=== PATIENT | female | born 1975 | race Caucasian/White ===

== ENCOUNTER 2022-08-11 08:04 | Emergency (ER) | payer OTHER, SELFPAY ==
[2022-08-11] VITALS (11 sets, daily range): BP systolic 117–143; BP diastolic 69–103; PULSE 67–91; RESP 16; TEMP 36.6; O2SAT 97–100; BMI 22.9
--- NOTE | 2022-08-11 08:15 | ED.ABDPAIN ---
HPI - Abdominal Pain General Time Seen by Provider: 08:15 Date Seen: 08/11/22 Chief Complaint: Abdominal Pain Stated Complaint: RT side back and abdominal pain Time Seen by Provider: 08/11/22 08:15 Source: patient and RN notes reviewed Mode of arrival: ambulatory Limitations: no limitations History of Present Illness HPI narrative: Haley is a very pleasant 47-year-old female previously healthy who comes to the emergency room with complaints of abdominal pain and diarrhea. Patient notes the sudden onset of pain located in the right side of her abdomen with radiation into her back right flank on FridayAugust 07. She thought that this was perhaps a urinary tract infection but went to urgent care and the urinalysis was negative. She notes that the pain then migrated to her right lower quadrant but remained in her back over the next 48 hours. She notes that on Friday and going into yesterAugust 09 she had the development of a rash on that side. The rash in comes from her back wraps around her side and into her groin. She has not had shingles in the past. Patient states that right now in the ER she feels as good as she has felt since Friday. She has had some loose stools with this and describes 1 dark stool but describes no gross blood. She notes that she sometimes has improvement of the pain with urination but has not noticed any blood in her urine. She denies any possibility of . She thinks that she has had low-grade temps in the mornings. She denies nausea or vomiting. She has not had cough cold or congestion. Related Data Previous Rx's Medication Instructions Recorded hydrocodone 5 mg-acetaminophen 325 See Rx Instructions .Route 08/11/22 mg tablet .COMPLEX PRN pain #10 tabs valacyclovir 1 gram tablet 1,000 mg PO TID 7 days #21 tabs 08/11/22 Allergies Allergy/AdvReac Type Severity Reaction Status Date / Time No Known Drug Allergies Allergy Verified 08/11/22 08:13 Review of Systems Status of ROS Reports: 10 or more systems reviewed and unremarkable except as noted in History and below Const Reports: fever (Low-grade in the morning) and fatigue; Denies: chills or night sweats Eyes Denies: change in vision ENMT Denies: throat pain, neck pain, throat swelling or difficulty swallowing Cardio Denies: chest pain, palpitations, swelling of feet/ankles or shortness of breath with exertion Resp Denies: shortness of breath, cough or wheezing GI Reports: abdominal pain and diarrhea; Denies: nausea, vomiting, difficulty swallowing or blood in stool Denies: painful urination, urinary frequency, urinary urgency or blood in urine Musculo Reports: back pain; Denies: neck pain, extremity pain, extremity swelling or joint pain Integ/Breast Reports: rash, redness and skin tenderness; Denies: itching Neuro Denies: headache, numbness in extremities or weakness in extremities Psych Reports: anxiety (Is nervous about being in the emergency room) Endo Reports: fatigue Allergy/Immuno Denies: throat swelling or wheezing [facility] Social History Smoking Status: Never smoker Do you use any of these nicotine containing products: None Second hand tobacco smoke exposure: No How often do you have a drink containing alcohol: never How often do you have six or more drinks on one occasion: Never AUDIT-C Alcohol total score: 0 Non-prescribed substance use: denies use Exam Narrative: Exam Narrative: Patient is alert and oriented. Very pleasant well-spoken woman. Somewhat anxious. Eyes are clear. Face symmetrical. Heart with regular rate and rhythm. Lungs are clear in all lung cantu. Abdomen shows normal bowel sounds. No significant tenderness on exam. Lower extremities are moving without difficulty. Examination of patient's back shows a large area of erythema with the onset of some blistering in the T12/L1 dermatome. There are blisters on erythema extending on to the upper aspect of the buttock around the hip and on the mons pubis and right groin. I do not see any weeping at this time. Straight leg raise internal external rotation of the right hip does not increase pain in the abdomen. Const: Vital Signs, click to edit/add: Vital Signs - 24 hr 08/11/22 08:09 08/11/22 08:49 08/11/22 08:50 Temperature 97.8 F Pulse Rate 81 88 Pulse Rate [Left P ulse Oximeter] 91 Respiratory Rate 16 Blood Pressure 139/69 Blood Pressure [Ri ght Upper Arm] 143/76 H Pulse Oximetry 99 100 99 Oxygen Delivery Me thod Room Air 08/11/22 09:00 08/11/22 09:01 08/11/22 09:15 Temperature Pulse Rate 82 77 78 Pulse Rate [Left P ulse Oximeter] Respiratory Rate Blood Pressure 133/79 Blood Pressure [Ri ght Upper Arm] Pulse Oximetry 97 98 99 Oxygen Delivery Me thod 08/11/22 09:30 08/11/22 09:31 08/11/22 09:45 Temperature Pulse Rate 75 72 70 Pulse Rate [Left P ulse Oximeter] Respiratory Rate Blood Pressure 117/69 Blood Pressure [Ri ght Upper Arm] Pulse Oximetry 100 100 99 Oxygen Delivery Me thod Documenting provider has reviewed patient's vital signs: yes Course Course Hospital Course: Patient is presenting with rash consistent with shingles. However, she also has underlying diarrhea as well as discomfort in the right side of her abdomen relieved by urination. Patient is in agreement to make sure there is not coexisting colitis, kidney stone, UTI. We will place an IV use Toradol 15 mg IV and normal saline initially. Blood draw will be for CBC, comprehensive panel, and urinalysis. Reevaluation(s) Reevaluation #1: Patient notes feeling improved after fluids and Toradol. Vital Signs Vital signs: Initial Vital Signs Temperature 97.8 F 08/11/22 08:09 Temperature Source Temporal Artery Scan 08/11/22 08:09 Pulse Rate 91 08/11/22 08:09 Pulse Rhythm 08/11/22 08:09 Pulse Strength 3+ Normal 08/11/22 08:09 Respiratory Rate 16 08/11/22 08:09 Blood Pressure 143/76 H 08/11/22 08:09 Blood Pressure Mean 98 08/11/22 08:09 Blood Pressure Position Sitting 08/11/22 08:09 Pulse Oximetry 99 08/11/22 08:09 Oxygen Delivery Method 08/11/22 08:09 Vital Signs Temperature 97.8 F 08/11/22 08:09 Pulse Rate 91 08/11/22 08:09 Respiratory Rate 16 08/11/22 08:09 Blood Pressure 143/76 H 08/11/22 08:09 Pulse Oximetry 99 08/11/22 08:09 Oxygen Delivery Method 08/11/22 08:09 Temperature 97.8 F 08/11/22 08:09 Pulse Rate 70 08/11/22 09:45 Respiratory Rate 16 08/11/22 08:09 Blood Pressure 117/69 08/11/22 09:31 Pulse Oximetry 99 02/05/23 09:45 Oxygen Delivery Method 08/11/22 08:09 MDM - Abdominal Pain MDM Narrative Medical decision making narrative: 1. Shingles-valacyclovir 1 g p.o. t.i.d. x7 days. For discomfort recommend ibuprofen 600 mg every 8 hours as needed for pain. Will also supply small amount of Shade 5/325 1-2 tabs p.o. Q 4-6 hours p.r.n. 10. With no refills. Recommend avoiding individuals, young children especially babies with no history of chickenpox or vaccination as well as the elderly. Patient is instructed on keeping this area covered. Will monitor for signs of secondary infection and seek medical attention as needed. Recommend follow-up and establishment of care with primary care. 2. Diarrhea-at this time white count is normal and abdomen is benign. No further imaging at this time unless patient has onset of fever and worsening symptoms. 3. Hematuria-patient really does not have any symptoms of [place] IA and yet has 10-20 wbc's and rbc's. However for further evaluation shows that this is a contaminated specimen. Patient also notes that she thinks she has started spotting for her. . At this time no further imaging but recommend follow-up and recheck of urinalysis or possibility of imaging if patient has worsening symptoms. Patient has no prior history of kidney stones or colitis. Vital signs reassuring today but I did talk about some of her symptoms not being entirely consistent with only shingles. If she has worsening symptoms I would like her re-evaluated and would start with a CT of the abdomen and pelvis if warranted. I did discuss additional diagnoses outside of shingles with this patient. She does agree that she feels comfortable going home at this time. 3. Disposition-home with . [facility] Return as needed. Lab Data Attestation: I reviewed the patient's lab results. Labs: Lab Results 08/11/22 08/11/22 08/11/22 Range/Units 08:50 08:50 08:50 WBC 4.22 L (4.50-11.00) K/uL RBC 4.84 (4.00-5.20) m/uL Hgb 13.1 (12.0-16.0) gm/dL Hct 39.7 (33.0-51.0) % MCV 82 (80-100) fL MCH 27 (26-34) pg MCHC 33 (32-36) gm/dL RDW Coeff of [place] 14.3 (11.5-15.5) % Plt Count 152 (140-440) K/uL Neut % (Auto) 69.3 (42.0-72.0) % Lymph % (Auto) 20.6 (20-44) % [place] % (Auto) 8.8 (0.0-11.0) % Eos % (Auto) 0.2 (0.0-7.0) % Baso % (Auto) 0.9 (0.0-3.0) % Neut # (Auto) 2.90 (1.7-7.0) K/uL Lymph # (Auto) 0.90 (0.90-2.90) K/uL [place] # (Auto) 0.40 (0.00-0.90) K/UL Eos # (Auto) 0.00 (0.00-0.50) K/uL Baso # (Auto) 0.00 (0.00-0.30) K/uL Sodium 136 (135-149) mmol/L Potassium 3.5 L (3.6-5.1) mmol/L Chloride 102 (96-114) mmol/L Carbon Dioxide 27 (20-32) mmol/L BUN 10 (5-24) mg/dL Creatinine 0.8 (0.5-1.5) mg/dL Estimated Creat Clear 68.76 Estimated GFR 91 ml/min Glucose 103 (60-115) mg/dL Calcium 8.9 (8.4-10.6) mg/dL Total Bilirubin 0.8 (0.1-1.5) mg/dL Direct Bilirubin 0.1 (0.0-0.5) mg/dL AST 25 (12-35) U/L ALT 23 (4-35) U/L Alkaline Phosphatase 66 (40-150) U/L C-Reactive Protein 0.5 (0.5-1.0) mg/dL Total Protein 7.8 (6.0-8.3) g/dL Albumin 4.6 (3.3-5.0) g/dL Urine Color Yellow (Yellow) Urine Appearance Clear (Clear) Urine pH 6.0 (5.0-8.5) Ur Specific [place] 1.015 (1.000-1.030) Urine Protein Negative (Negative) Urine Glucose (UA) Negative (Negative) Urine Ketones 1+ A (Negative) Urine Blood 3+ A (Negative) Urine Nitrite Negative (Negative) Urine Bilirubin Negative (Negative) Urine Urobilinogen 0.2 (0.2-1.0) Ur Leukocyte Esterase Negative (Negative) Urine RBC 10-25 A (0-2) Urine WBC 10-25 A (0-5) Ur Squamous Epith Cells Moderate A (None-Few) Urine Bacteria Moderate A (None) Discharge Plan Discharge Clinical Impression: Shingles Patient Disposition: Home, Self-Care Condition: Improved Additional Instructions: Start your antiviral medicine called valacyclovir today. You will take this medication 3 times a day for 7 days. For pain: Ibuprofen 600 mg every 8 hours as needed for discomfort. Shade also known as hydrocodone or Vicodin may be used for pain not relieved by ibuprofen. Sometimes is best to leave this for nighttime sleeping. Side effects of hydrocodone which is a narcotic do include constipation, nausea and sometimes lightheadedness. Please do not use alcohol or operate a vehicle if you are on a narcotic. You may want to take a stool softener. You are contagious to anybody who is not immune to chickenpox. Please isolate from the elderly population as well as anybody who may be or on chemotherapy. Follow-up with a new provider. [facility] can be reached at [phone]. Dr. Calvert and Dr. Simon are taking patients I believe. The [facility] can be reached at [phone]. Suggest follow-up sometime over the next week. Prescriptions: New valacyclovir 1 gram tablet 1,000 mg PO TID 7 Days Qty: 21 0RF hydrocodone-acetaminophen 5-325 mg tablet See Rx Instructions .ROUTE .COMPLEX PRN (Reason: pain) Qty: 10 0RF Rx Instructions: 1-2 tabs p.o. q.4-6 hours p.r.n. discomfort. Stand Alone Forms: [facility]ician [facility] [employer] Info Instructions
[2022-08-11] MEDS: 0.9 % SODIUM CHLORIDE 1000 ml 1,000 ML IV (08:48)
[2022-08-11] MEDS: KETOROLAC 15 MG/ML inj IVP (08:48)
[2022-08-11 08:58] LABS: Appearance Urine Clear (Clear); Bilirubin Urine Negative (Negative); Blood Urine 3+ (Negative); Color Urine Yellow (Yellow); Glucose Urine Negative (Negative); Ketones Urine 1+ (Negative); Leukocyte Esterase Urine Negative (Negative); Nitrite Urine Negative (Negative); Protein Urine Negative (Negative); Specific Gravity Urine 1.015 (1.000-1.030); Urobilinogen Urine 0.2 (0.2-1.0)
[2022-08-11 08:59] LABS: Basophils Percent Auto 0.9 % (0.0-3.0); Eosinophils Percent Auto 0.2 % (0.0-7.0); Hematocrit 39.7 % (33.0-51.0); Hemoglobin* 13.1 gm/dL (12.0-16.0); Immature Granulocytes Pct Auto 0.2 %; Lymphocytes Percent Auto 20.6 % (20-44); Mean Corpuscular HGB Conc 33 gm/dL (32-36); Mean Corpuscular Hemoglobin 27 pg (26-34); Mean Corpuscular Volume 82 fL (80-100); Monocytes Percent Auto 8.8 % (0.0-11.0); Neutrophils Percent Auto 69.3 % (42.0-72.0); Platelet Count* 152 K/uL (140-440); RDW Coefficient of Variation % 14.3 % (11.5-15.5); Red Blood Count 4.84 m/uL (4.00-5.20); White Blood Count* 4.22 K/uL (4.50-11.00)
[2022-08-11 09:05] LABS: Slide Review Reflex No
[2022-08-11 09:16] LABS: Squamous Epithelial Cell Urine Moderate (None-Few)
[2022-08-11 09:17] LABS: Bacteria Urine Moderate
[2022-08-11 09:33] LABS: Albumin* 4.6 g/dL (3.3-5.0); Chloride* 102 mmol/L (96-114)
[2022-08-11 09:34] LABS: Potassium* 3.5 mmol/L (3.6-5.1); Sodium* 136 mmol/L (135-149)
[2022-08-11 09:36] LABS: Alkaline Phosphatase* 66 U/L (40-150); Aspartate Amino Transferase* 25 U/L (12-35); Bilirubin Direct* 0.1 mg/dL (0.0-0.5); Bilirubin Total* 0.8 mg/dL (0.1-1.5); Blood Urea Nitrogen* 10 mg/dL (5-24); Carbon Dioxide* 27 mmol/L (20-32); Creatinine* 0.8 mg/dL (0.5-1.5); Est. Creatinine Clearance* 68.76; Estimated Glomerular Filt Rate 91 ml/min; Total Protein* 7.8 g/dL (6.0-8.3)
[2022-08-11 09:37] LABS: Alanine Aminotransferase* 23 U/L (4-35); Calcium* 8.9 mg/dL (8.4-10.6); Glucose* 103 mg/dL (60-115)
[2022-08-11 09:39] LABS: C Reactive Protein* 0.5 mg/dL (0.5-1.0)
== END 2022-08-11 10:27 | disposition home or self-care (01) ==
PROVIDERS: Family Medicine; Emergency Provider Family Medicine
DX: B02.9 Zoster without complications (principal); R19.7 Diarrhea, unspecified; R31.9 Hematuria, unspecified
CPT/HCPCS: 36415; 80048; 80076; 81001; 85025; 86140; 87086; 99283; 99284; J1885; J7030